=== PATIENT | male | born 1985 | race Hispanic/Latino ===

== ENCOUNTER 2018-05-04 06:23 | Inpatient (IN) | payer OTHER, SELFPAY ==
[2018-05-04 07:42] LABS: #Eosinphils 0.2 thou/uL (0.0-0.7); #Lymphocytes 1.8 thou/uL (1.20-3.40); #Monocytes 1.7 thou/uL (0.11-0.59); #Neutrophils 13.5 thou/uL (1.40-6.50); %Basophils 0.2 % (0.0-1.0); %Eosinophils 0.9 % (0.0-10.0); %Lymphocytes 10.4 % (21.0-51.0); %Monocytes 9.7 % (0.0-10.0); %Neutrophils 78.8 % (42.0-75.0); Hemoglobin 13.8 g/dL (14.0-18.0); Mean Corpuscular HGB CONC 31.7 g/dL (32.0-36.0); Mean Corpuscular Hemoglobin 31.9 pg (27.0-31.0); Mean Platelet Volume 8.9 fL (7.4-10.4); Platelet Count 189 thou/uL (130-400); RBC Distribution Width 16.1 % (11.5-14.5); Red Blood Cell (RBC) Count 4.34 mill/uL (4.70-6.10); White Blood Cell (WBC) Count 17.1 thou/uL (4.8-10.8)
[2018-05-04 08:00] LABS: ALT (SGPT) 45 U/L (8-55); AST (SGOT) 37 U/L (5-34); Alkaline Phosphatase 132 U/L (40-150); BUN (Urea Nitrogen) 19 mg/dL (8.9-20.6); Bilirubin, Total 7.2 mg/dL (0.2-1.2); CK (CPK) 76 U/L (30-200); Calc. Creatinine Clearance 0 mL/min (70-130); Calcium 8.4 mg/dL (7.8-10.44); Carbon Dioxide 22 mmol/L (22-29); Chloride 99 mmol/L (98-107); Estimated GFR-MDRD 56; Globulin 3.3 g/dL (2.4-3.5); Glucose 179 mg/dL (70-105); Lipase 174 U/L (8-78); Potassium 3.8 mmol/L (3.5-5.1); Protein, Total 6.3 g/dL (6.0-8.3); Sodium 131 mmol/L (136-145)
[2018-05-04] MEDS ORDERED: Ketorolac Tromethamine 30 MG/ML VIAL ONE (09:09)
[2018-05-04] MEDS ORDERED: Iopamidol 370 76% 50 ML VIAL FS ONE (09:32)
[2018-05-04 09:38] LABS: INR-International Normal Ratio 1.2; PTT 31.6 SEC (22.9-36.1); Prothrombin Time 15.3 SEC (12.0-14.7)
--- NOTE | 2018-05-04 09:42 | CT ---
ABDOMEN CT WITH CONTRAST PELVIC CT WITH CONTRAST: HISTORY: Postoperative pain. Bloating. COMPARISON: None. FINDINGS: ABDOMEN CT: Small bilateral effusions with adjacent consolidation likely representing atelectasis. Heart size is normal. No significant pericardial fluid. The visualized aorta has a normal caliber. Portal vein is patent. Unremarkable gallbladder. Liver, spleen, pancreas, and adrenal glands have appropriate enhancement. Symmetric enhancement of the kidneys. Bilaterally, no obstructive uropathy. No gastrohepatic, retrocrural, or periportal lymphadenopathy. There is perihepatic, perisplenic fluid with attenuation coefficient of 25 Hounsfield units suggestin g complex and possibly slightly hemorrhagic fluid. There is fluid and air attenuation near the splen ic hilum. There is some mild heterogeneity of the superior aspect of the spleen with a possible defe ct. Correlate for possible splenic infarction. Along the periphery of the aforementioned mixed flui d and air attenuation is a linear hyperdensity which appears to be contiguous with a vessel in the sp lenic hilum. The possibility of active extravasation is suggested. This active extravasation may be the source for the aforementioned complex/hemorrhagic fluid in the abdomen and pelvis. Limited evaluation of the alimentary canal. No evidence of bowel obstruction. The ileocecal junctio n is normal. Normal-caliber appendix. Scattered fecal material in the nondistended, nondilated colo n. Occasional diverticulum. PELVIC CT: Complex fluid in the pelvis. No mass, lymphadenopathy, or free air. Unremarkable urinary bladder. No lytic or blastic lesions in the osseous structures. IMPRESSION: 1. Complex fluid in the abdomen. There is fluid and air attenuation near the splenic hilum which ma y represent a developing clot. The possibility of a retained sponge is less likely given the lack of a radiopaque density associated with this collection. However, a confirmation of a correct sponge c ount should be performed. If there is concern for a retained sponge, consider radiograph to exclude possible retained sponge. 2. Possible active extravasation from a bleed associated with the vessel in the splenic hilum. This bleed may be the etiology for the complex fluid noted in the abdomen and pelvis. 3. Heterogeneous attenuation of the spleen superiorly. The possibility of splenic infarction cannot be excluded. 4. Bilateral effusions with adjacent atelectasis. Results of the study were discussed with Dr. Corado 05/04/2018 at 8:56 a.m. CODE CR POS: [facility]
[2018-05-04 09:48] LABS: Bilirubin Large (Negative); Blood, Urine Negative (Negative); Clarity CLEAR (Clear); Glucose, Urine (Dipstick) Negative (Negative); Leukocyte Small (Negative); Protein, Urine (Dipstick) Trace mg/dL (Neg-Trace)
[2018-05-04 09:51] LABS: Bacteria/HPF None Seen HPF (None Seen)
[2018-05-04 10:08] LABS: Nitrite Unable to Interpret (Negative); Pathc Cast-AUWi Flag 37.21 (0-2.49)
[2018-05-04 10:09] LABS: Specific Gravity, Urine 1.059 (1.002-1.036)
[2018-05-04] MEDS ORDERED: ISOVUE-370 76%-LOCM 1 ML ONE (10:09)
[2018-05-04 10:11] LABS: Crystals/HPF 1+ CA OXALATE HPF (Negative); RBC/HPF None Seen HPF (0-3); WBC/HPF 0-3 HPF (0-3)
[2018-05-04 10:12] LABS: Other Casts/LPF 4-6 FINELY GRAN LPF (0-3 Hyaline)
[2018-05-04 10:13] LABS: Squamous Epithelial 0-3 HPF (0-3)
[2018-05-04 10:14] LABS: Transitional Epithelial 0-3 HPF (0-3)
[2018-05-04] MEDS ORDERED: Lidocaine 1% (PF) 30 ML VIAL ONE (10:44)
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
[2018-05-04] MEDS ORDERED: Fentanyl 100 MCG/2 ML VIAL ONE (11:18)
[2018-05-04] MEDS ORDERED: Midazolam HCl 2 mg/2 ml Vial ONE (11:18)
[2018-05-04 12:25] LABS: Anion Gap 14 mmol/L (10-20)
[2018-05-04] MEDS ORDERED: Sodium Bicarbonate 150 MEQ in Dextrose 5% in Water 1,000 ML IV SCH (13:37)
[2018-05-04] MEDS ORDERED: Dextrose 5% in Water 1,000 ML IV PRN (13:37)
[2018-05-04] MEDS ORDERED: Ondansetron ODT 4 MG TAB PO PRN (13:37)
[2018-05-04] MEDS ORDERED: Ondansetron PF 4 MG/2 ML Vial IVP PRN (13:37)
[2018-05-04] MEDS ORDERED: Dextrose 50% Abboject 50 ML SYRINGE SLOW IVP PRN (13:37)
[2018-05-04] MEDS ORDERED: Morphine 2 MG/ML SYRINGE SLOW IVP PRN (13:49)
[2018-05-04] MEDS ORDERED: traMADol HCl 50 MG TAB PO PRN (14:02)
[2018-05-04 14:05] VITALS: BMI 34.8
[2018-05-04 14:10] LABS: Hemoglobin 12.7 g/dL (14.0-18.0)
[2018-05-04] MEDS: Sodium Chloride 0.9% 1,000 ML IV SCH ×2 (14:19→23:58)
[2018-05-04] MEDS: Acetaminophen 1,000 MG in Premix Bag 1 BAG IVPB SCH ×2 (14:21→21:21)
[2018-05-04] MEDS: Oxazepam 10 MG CAP PO SCH ×2 (14:22→22:53)
[2018-05-04 14:57] LABS: HBCM Index 0.52 S/CO (0-0.79); HBSAg Index 0.32 S/CO (0-0.99); Hep A IgM AB Non-Reactive (NonReactive); Hep A IgM S/CO 0.39 S/CO (0-0.79); Hep B Surf Ag Non-Reactive S/CO (NonReactive); Hep C IgG Ab Non-Reactive (NonReactive); Hep C Index 0.08 S/CO (0-0.79); Hepatitis B Core IgM Abs Non-Reactive (NonReactive)
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
[2018-05-04] MEDS: Ketorolac Tromethamine 30 MG/ML VIAL IVP SCH ×2 (16:20→21:20)
[2018-05-04 19:44] LABS: Hemoglobin 12.1 g/dL (14.0-18.0)
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
[2018-05-04] MEDS: Famotidine 20 MG TAB PO SCH (21:19)
[2018-05-05] MEDS: Acetaminophen 1,000 MG in Premix Bag 1 BAG IVPB SCH (01:55)
[2018-05-05 02:49] LABS: ALT (SGPT) 39 U/L (8-55); AST (SGOT) 39 U/L (5-34); Albumin 2.7 g/dL (3.5-5.0); Alkaline Phosphatase 109 U/L (40-150); Anion Gap 17 mmol/L (10-20); BUN (Urea Nitrogen) 26 mg/dL (8.9-20.6); Bilirubin, Direct 4.7 mg/dL (0.1-0.3); Bilirubin, Total 6.3 mg/dL (0.2-1.2); Calc. Creatinine Clearance 71 mL/min (70-130); Calcium 7.5 mg/dL (7.8-10.44); Carbon Dioxide 20 mmol/L (22-29); Chloride 97 mmol/L (98-107); Estimated GFR-MDRD 41; Glucose 114 mg/dL (70-105); Potassium 3.8 mmol/L (3.5-5.1); Protein, Total 5.8 g/dL (6.0-8.3); Sodium 130 mmol/L (136-145)
[2018-05-05 03:10] LABS: Band 4 % (5-11); Hemoglobin 11.7 g/dL (14.0-18.0); Hypochromia SLIGHT = 6-15 cells (100X) (0-5/hpf); Lymphocytes 4 % (21-51); MDiff Complete? YES; Mean Corpuscular HGB CONC 33.4 g/dL (32.0-36.0); Mean Corpuscular Hemoglobin 32.6 pg (27.0-31.0); Mean Corpuscular Volume 97.7 fL (78.0-98.0); Mean Platelet Volume 8.9 fL (7.4-10.4); Monocytes 10 % (0-10); Neutrophil 82 % (42-75); PLT Morphology Comment Appears Adequate; Platelet Count 207 thou/uL (130-400); RBC Distribution Width 15.9 % (11.5-14.5); Red Blood Cell (RBC) Count 3.59 mill/uL (4.70-6.10); White Blood Cell (WBC) Count 20.8 thou/uL (4.8-10.8)
[2018-05-05] MEDS: Ketorolac Tromethamine 30 MG/ML VIAL IVP SCH (04:02)
[2018-05-05] MEDS: Oxazepam 10 MG CAP PO SCH ×3 (05:53→21:18)
[2018-05-05 08:26] LABS: Hemoglobin 11.4 g/dL (14.0-18.0)
[2018-05-05] MEDS: Famotidine 20 MG TAB PO SCH ×2 (10:46→20:05)
[2018-05-05] MEDS: Sodium Chloride 0.9% 1,000 ML IV SCH (10:46)
[2018-05-05] MEDS: Folic Acid 1 MG TAB PO SCH (10:46)
[2018-05-05] MEDS: traMADol HCl 50 MG TAB PO PRN (12:41)
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
[2018-05-05] MEDS: Sodium Bicarbonate 150 MEQ in Dextrose 5% in Water 1,000 ML IV SCH (17:35)
--- NOTE | 2018-05-05 17:58 | ULT ---
VENOUS DUPLEX SONOGRAM BILATERAL LOWER EXTREMITY: Date: 05/05/18 HISTORY: Bilateral leg pain and edema. FINDINGS: Each common femoral vein and greater saphenous junction were evaluated along with each femoral and de ep femoral, popliteal, and posterior tibial vein. There is good color and spectral Doppler flow, comp ression, and augmentation. IMPRESSION: No sonographic evidence of deep venous thrombosis within either lower extremity. POS: ANDI
--- NOTE | 2018-05-05 18:33 | ULT ---
HEPATIC ULTRASOUND: HISTORY: Right-sided pleural effusion. Splenomegaly. Ascites. Evaluate for vascular thrombosis. TECHNIQUE: Multiple longitudinal and transverse images of the liver are obtained using a Multi-Hertz curvilinear transducer. Real-time, color-flow, and spectral wave-form Doppler analysis demonstrates a nodular a ppearing, enlarged liver. FINDINGS: Normal hepatopetal flow is seen in the portal system. The inferior vena cava is patent. The abdomin al aorta is unremarkable. The hepatic veins are patent. A moderate amount of ascites is seen. The spleen is patent. Flow is seen in the splenic artery. The splenic vein is difficult to assess d ue to patient's body habitus. The gallbladder is unremarkable. The common bile duct is of normal size. Incidentally noted right-sided pleural effusion is also seen. IMPRESSION: No evidence of significant hepatic venous or portal venous thrombosis. POS: [facility]
[2018-05-05] MEDS ORDERED: Furosemide 40 MG/4 ML VIAL SLOW IVP SCH (19:15)
[2018-05-06] MEDS: Sodium Bicarbonate 150 MEQ in Dextrose 5% in Water 1,000 ML IV SCH (02:09)
[2018-05-06] MEDS: traMADol HCl 50 MG TAB PO PRN (04:44)
[2018-05-06] MEDS: Oxazepam 10 MG CAP PO SCH ×3 (05:31→22:08)
[2018-05-06 05:49] LABS: #Eosinphils 0.1 thou/uL (0.0-0.7); #Lymphocytes 1.5 thou/uL (1.20-3.40); #Monocytes 2.2 thou/uL (0.11-0.59); #Neutrophils 14.1 thou/uL (1.40-6.50); %Basophils 0.3 % (0.0-1.0); %Eosinophils 0.7 % (0.0-10.0); %Lymphocytes 8.2 % (21.0-51.0); %Monocytes 12.5 % (0.0-10.0); %Neutrophils 78.4 % (42.0-75.0); Hemoglobin 10.3 g/dL (14.0-18.0); Mean Corpuscular HGB CONC 31.5 g/dL (32.0-36.0); Mean Corpuscular Hemoglobin 30.8 pg (27.0-31.0); Mean Corpuscular Volume 97.6 fL (78.0-98.0); Mean Platelet Volume 8.7 fL (7.4-10.4); Platelet Count 225 thou/uL (130-400); RBC Distribution Width 15.9 % (11.5-14.5); Red Blood Cell (RBC) Count 3.34 mill/uL (4.70-6.10); White Blood Cell (WBC) Count 17.9 thou/uL (4.8-10.8)
[2018-05-06 05:55] LABS: Anion Gap 13 mmol/L (10-20); BUN (Urea Nitrogen) 25 mg/dL (8.9-20.6); Calc. Creatinine Clearance 135 mL/min (70-130); Calcium 7.6 mg/dL (7.8-10.44); Carbon Dioxide 26 mmol/L (22-29); Chloride 94 mmol/L (98-107); Estimated GFR-MDRD 85; Glucose 136 mg/dL (70-105); Magnesium 1.8 mg/dL (1.6-2.6); Phosphorus 2.7 mg/dL (2.3-4.7); Potassium 3.2 mmol/L (3.5-5.1); Sodium 130 mmol/L (136-145)
[2018-05-06] MEDS: Famotidine 20 MG TAB PO SCH ×2 (08:36→22:08)
[2018-05-06] MEDS: Folic Acid 1 MG TAB PO SCH (08:36)
[2018-05-06] MEDS ORDERED: Potassium Chloride 40 MEQ in Sodium Chloride 0.9% 250 ML 250 ML IVPB SCH (09:00)
[2018-05-06 09:27] LABS: ALT (SGPT) 34 U/L (8-55); AST (SGOT) 45 U/L (5-34); Albumin 2.9 g/dL (3.5-5.0); Alkaline Phosphatase 119 U/L (40-150); Bilirubin, Direct 5.1 mg/dL (0.1-0.3); Protein, Total 6.2 g/dL (6.0-8.3)
[2018-05-06] MEDS ORDERED: Furosemide 20 MG TAB PO SCH (11:15)
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
[2018-05-07] MEDS: Oxazepam 10 MG CAP PO SCH ×3 (05:35→22:43)
[2018-05-07 06:40] LABS: Anion Gap 17 mmol/L (10-20); BUN (Urea Nitrogen) 19 mg/dL (8.9-20.6); Calc. Creatinine Clearance 161 mL/min (70-130); Calcium 8.1 mg/dL (7.8-10.44); Carbon Dioxide 26 mmol/L (22-29); Chloride 93 mmol/L (98-107); Estimated GFR-MDRD Greater than 90; Glucose 113 mg/dL (70-105); Magnesium 2.1 mg/dL (1.6-2.6); Phosphorus 2.6 mg/dL (2.3-4.7); Potassium 3.6 mmol/L (3.5-5.1); Sodium 132 mmol/L (136-145)
[2018-05-07 06:46] LABS: ALT (SGPT) 41 U/L (8-55); AST (SGOT) 62 U/L (5-34); Albumin 3.1 g/dL (3.5-5.0); Alkaline Phosphatase 160 U/L (40-150); Bilirubin, Direct 6.2 mg/dL (0.1-0.3); Bilirubin, Total 8.8 mg/dL (0.2-1.2)
[2018-05-07 06:50] LABS: Band 9 % (5-11); Hemoglobin 11.3 g/dL (14.0-18.0); Hypochromia SLIGHT = 6-15 cells (100X) (0-5/hpf); Lymphocytes 4 % (21-51); MDiff Complete? YES; Mean Corpuscular HGB CONC 31.8 g/dL (32.0-36.0); Mean Corpuscular Hemoglobin 31.5 pg (27.0-31.0); Mean Corpuscular Volume 98.9 fL (78.0-98.0); Mean Platelet Volume 8.5 fL (7.4-10.4); Monocytes 12 % (0-10); Neutrophil 75 % (42-75); PLT Morphology Comment Appears Adequate; Platelet Count 266 thou/uL (130-400); Polychromasia SLIGHT = 2-3 cells (100X) (0-2/hpf); RBC Distribution Width 16.4 % (11.5-14.5); Red Blood Cell (RBC) Count 3.59 mill/uL (4.70-6.10); White Blood Cell (WBC) Count 18.3 thou/uL (4.8-10.8)
[2018-05-07] MEDS: Famotidine 20 MG TAB PO SCH ×2 (09:08→20:31)
[2018-05-07] MEDS: Folic Acid 1 MG TAB PO SCH (09:09)
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
[2018-05-07] MEDS: Furosemide 20 MG/2 ML VIAL SLOW IVP SCH ×2 (16:07→23:36)
[2018-05-07] MEDS: traMADol HCl 50 MG TAB PO PRN (18:16)
[2018-05-08] MEDS: Oxazepam 10 MG CAP PO SCH ×3 (05:25→21:32)
[2018-05-08 06:00] LABS: #Basophils 0.1 thou/uL (0.0-0.2); #Eosinphils 0.3 thou/uL (0.0-0.7); #Lymphocytes 1.7 thou/uL (1.20-3.40); #Monocytes 2.2 thou/uL (0.11-0.59); #Neutrophils 11.9 thou/uL (1.40-6.50); %Basophils 0.5 % (0.0-1.0); %Eosinophils 1.8 % (0.0-10.0); %Lymphocytes 10.4 % (21.0-51.0); %Monocytes 13.5 % (0.0-10.0); %Neutrophils 73.9 % (42.0-75.0); Hemoglobin 9.8 g/dL (14.0-18.0); Mean Corpuscular HGB CONC 31.6 g/dL (32.0-36.0); Mean Corpuscular Hemoglobin 30.9 pg (27.0-31.0); Mean Corpuscular Volume 97.8 fL (78.0-98.0); Mean Platelet Volume 7.8 fL (7.4-10.4); Platelet Count 261 thou/uL (130-400); RBC Distribution Width 15.9 % (11.5-14.5); Red Blood Cell (RBC) Count 3.18 mill/uL (4.70-6.10); White Blood Cell (WBC) Count 16.1 thou/uL (4.8-10.8)
[2018-05-08 06:21] LABS: Anion Gap 14 mmol/L (10-20); BUN (Urea Nitrogen) 15 mg/dL (8.9-20.6); Calc. Creatinine Clearance 175 mL/min (70-130); Calcium 8.2 mg/dL (7.8-10.44); Carbon Dioxide 29 mmol/L (22-29); Chloride 94 mmol/L (98-107); Estimated GFR-MDRD Greater than 90; Glucose 108 mg/dL (70-105); Magnesium 2.3 mg/dL (1.6-2.6); Phosphorus 2.7 mg/dL (2.3-4.7); Sodium 133 mmol/L (136-145)
[2018-05-08] MEDS: Folic Acid 1 MG TAB PO SCH (08:25)
[2018-05-08] MEDS: Famotidine 20 MG TAB PO SCH ×2 (08:25→21:32)
[2018-05-08] MEDS: Enoxaparin Sodium 40 MG/0.4 ML SYRINGE SC SCH (08:25)
[2018-05-08] MEDS: Furosemide 20 MG/2 ML VIAL SLOW IVP SCH ×3 (08:25→23:33)
[2018-05-08 11:24] LABS: Albumin 3.1 g/dL (3.5-5.0); Bilirubin, Total 9.2 mg/dL (0.2-1.2); Potassium 3.8 mmol/L (3.5-5.1); Protein, Total 7.1 g/dL (6.0-8.3)
[2018-05-08 11:25] LABS: ALT (SGPT) 42 U/L (8-55); AST (SGOT) 73 U/L (5-34); Alkaline Phosphatase 173 U/L (40-150)
[2018-05-09] MEDS: Oxazepam 10 MG CAP PO SCH ×3 (05:09→21:31)
[2018-05-09 06:16] LABS: #Basophils 0.1 thou/uL (0.0-0.2); #Eosinphils 0.3 thou/uL (0.0-0.7); #Lymphocytes 1.5 thou/uL (1.20-3.40); #Neutrophils 11.9 thou/uL (1.40-6.50); %Basophils 0.5 % (0.0-1.0); %Eosinophils 2.1 % (0.0-10.0); %Lymphocytes 9.3 % (21.0-51.0); %Monocytes 12.5 % (0.0-10.0); %Neutrophils 75.7 % (42.0-75.0); Hemoglobin 9.7 g/dL (14.0-18.0); Mean Corpuscular HGB CONC 31.2 g/dL (32.0-36.0); Mean Corpuscular Hemoglobin 31.1 pg (27.0-31.0); Mean Corpuscular Volume 99.8 fL (78.0-98.0); Mean Platelet Volume 8.1 fL (7.4-10.4); Platelet Count 279 thou/uL (130-400); RBC Distribution Width 15.8 % (11.5-14.5); Red Blood Cell (RBC) Count 3.12 mill/uL (4.70-6.10); White Blood Cell (WBC) Count 15.8 thou/uL (4.8-10.8)
[2018-05-09 06:56] LABS: Anion Gap 13 mmol/L (10-20); BUN (Urea Nitrogen) 9 mg/dL (8.9-20.6); Calc. Creatinine Clearance 190 mL/min (70-130); Calcium 8.4 mg/dL (7.8-10.44); Carbon Dioxide 32 mmol/L (22-29); Chloride 93 mmol/L (98-107); Estimated GFR-MDRD Greater than 90; Glucose 93 mg/dL (70-105); Magnesium 1.8 mg/dL (1.6-2.6); Phosphorus 2.5 mg/dL (2.3-4.7); Potassium 3.5 mmol/L (3.5-5.1); Sodium 134 mmol/L (136-145)
[2018-05-09 08:25] LABS: ALT (SGPT) 45 U/L (8-55); AST (SGOT) 87 U/L (5-34); Albumin 3.1 g/dL (3.5-5.0); Alkaline Phosphatase 216 U/L (40-150); Bilirubin, Direct 6.6 mg/dL (0.1-0.3); Protein, Total 7.2 g/dL (6.0-8.3)
[2018-05-09] MEDS ORDERED: Potassium Chloride 40 MEQ in Premix Bag 1 BAG IVPB SCH (08:30)
[2018-05-09] MEDS ORDERED: Magnesium Sulfate 3 GM in Sodium Chloride 0.9% 100 ML IVPB SCH (08:30)
[2018-05-09] MEDS ORDERED: Potassium Chloride 40 MEQ, Magnesium Sulfate 3 GM in Sodium Chloride 0.9% 250 ML 250 ML IVPB SCH (09:00)
[2018-05-09] MEDS: Famotidine 20 MG TAB PO SCH ×2 (09:14→20:01)
[2018-05-09] MEDS: Furosemide 20 MG/2 ML VIAL SLOW IVP SCH ×3 (09:15→23:12)
[2018-05-09] MEDS: Enoxaparin Sodium 40 MG/0.4 ML SYRINGE SC SCH (09:15)
[2018-05-09] MEDS: Folic Acid 1 MG TAB PO SCH (09:15)
[2018-05-09] MEDS ORDERED: AcetaZOLAMIDE 250 MG TAB PO SCH (10:00)
[2018-05-09] MEDS: AcetaZOLAMIDE 250 MG TAB PO SCH ×2 (14:51→20:01)
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
[2018-05-10 06:02] LABS: ALT (SGPT) 40 U/L (8-55); AST (SGOT) 57 U/L (5-34); Alkaline Phosphatase 205 U/L (40-150); Anion Gap 14 mmol/L (10-20); BUN (Urea Nitrogen) 8 mg/dL (8.9-20.6); Bilirubin, Total 8.9 mg/dL (0.2-1.2); Calc. Creatinine Clearance 180 mL/min (70-130); Calcium 8.4 mg/dL (7.8-10.44); Carbon Dioxide 24 mmol/L (22-29); Chloride 101 mmol/L (98-107); Estimated GFR-MDRD Greater than 90; Globulin 3.8 g/dL (2.4-3.5); Glucose 111 mg/dL (70-105); Iron Binding Capacity, Total 189 mcg/dL (261-462); Protein, Total 6.8 g/dL (6.0-8.3); Sodium 136 mmol/L (136-145)
[2018-05-10 06:06] LABS: Potassium 2.9 mmol/L (3.5-5.1)
[2018-05-10] MEDS: Oxazepam 10 MG CAP PO SCH ×2 (06:30→20:40)
[2018-05-10] MEDS ORDERED: Potassium Chloride 20 MEQ TAB PO SCH ×2 (06:30→16:00)
[2018-05-10 06:42] LABS: Magnesium 1.9 mg/dL (1.6-2.6); Phosphorus 3.4 mg/dL (2.3-4.7)
[2018-05-10 06:51] LABS: Band 18 % (5-11); Eosinophils 1 % (0-10); Hemoglobin 10.1 g/dL (14.0-18.0); Lymphocytes 10 % (21-51); MDiff Complete? YES; Mean Corpuscular HGB CONC 31.2 g/dL (32.0-36.0); Mean Corpuscular Volume 99.6 fL (78.0-98.0); Mean Platelet Volume 7.7 fL (7.4-10.4); Monocytes 14 % (0-10); Neutrophil 57 % (42-75); Platelet Count 308 thou/uL (130-400); RBC Distribution Width 15.8 % (11.5-14.5); Red Blood Cell (RBC) Count 3.25 mill/uL (4.70-6.10); White Blood Cell (WBC) Count 16.4 thou/uL (4.8-10.8)
[2018-05-10] MEDS: Famotidine 20 MG TAB PO SCH ×2 (08:45→20:40)
[2018-05-10] MEDS: AcetaZOLAMIDE 250 MG TAB PO SCH (08:45)
[2018-05-10] MEDS: Folic Acid 1 MG TAB PO SCH (08:45)
[2018-05-10] MEDS: Furosemide 20 MG/2 ML VIAL SLOW IVP SCH ×3 (08:45→23:09)
[2018-05-10] MEDS: Enoxaparin Sodium 40 MG/0.4 ML SYRINGE SC SCH (08:45)
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
[2018-05-10 13:54] LABS: Bilirubin Small (Negative); Blood, Urine Negative (Negative); Clarity CLEAR (Clear); Glucose, Urine (Dipstick) Negative (Negative); Leukocyte Trace (Negative); Nitrite Negative (Negative); Protein, Urine (Dipstick) 30 mg/dL (Neg-Trace); Specific Gravity, Urine 1.013 (1.002-1.036); pH, Urine 8.5 (5.0-9.0)
[2018-05-10 13:57] LABS: Bacteria/HPF None Seen HPF (None Seen); Hyaline Casts/LPF 0-3 HYALINE CAST LPF (0-3 Hyaline); Pathc Cast-AUWi Flag 0.14 (0-2.49); Squamous Epithelial None Seen HPF (0-3)
--- NOTE | 2018-05-10 15:34 | RAD ---
PORTABLE CHEST: 05/10/18 HISTORY: Leukocytosis. Shortness of breath. No comparison chest films. Comparison is made to CT abdomen 05/04/18 which did have images through the lung bases. FINDINGS/IMPRESSION: Bilateral effusions and left basilar atelectasis was present on the prior CT. On today's exam, there is opacification of the left lung base indicating increased left effusion and left basilar atelectasis. Cardiomegaly. No significant vascular congestion. POS: H
[2018-05-11 06:07] LABS: #Basophils 0.1 thou/uL (0.0-0.2); #Eosinphils 0.5 thou/uL (0.0-0.7); #Lymphocytes 1.6 thou/uL (1.20-3.40); #Monocytes 2.3 thou/uL (0.11-0.59); #Neutrophils 11.1 thou/uL (1.40-6.50); %Basophils 0.6 % (0.0-1.0); %Eosinophils 3.1 % (0.0-10.0); %Monocytes 14.6 % (0.0-10.0); %Neutrophils 71.6 % (42.0-75.0); Hemoglobin 9.8 g/dL (14.0-18.0); Mean Corpuscular HGB CONC 31.8 g/dL (32.0-36.0); Mean Corpuscular Hemoglobin 31.6 pg (27.0-31.0); Mean Corpuscular Volume 99.4 fL (78.0-98.0); Mean Platelet Volume 7.1 fL (7.4-10.4); Platelet Count 303 thou/uL (130-400); RBC Distribution Width 15.7 % (11.5-14.5); Red Blood Cell (RBC) Count 3.09 mill/uL (4.70-6.10); White Blood Cell (WBC) Count 15.5 thou/uL (4.8-10.8)
[2018-05-11 06:30] LABS: ALT (SGPT) 37 U/L (8-55); AST (SGOT) 56 U/L (5-34); Albumin 2.8 g/dL (3.5-5.0); Alkaline Phosphatase 211 U/L (40-150); Anion Gap 13 mmol/L (10-20); BUN (Urea Nitrogen) 8 mg/dL (8.9-20.6); Bilirubin, Total 8.9 mg/dL (0.2-1.2); Calc. Creatinine Clearance 214 mL/min (70-130); Calcium 8.4 mg/dL (7.8-10.44); Carbon Dioxide 18 mmol/L (22-29); Chloride 107 mmol/L (98-107); Estimated GFR-MDRD Greater than 90; Globulin 4.1 g/dL (2.4-3.5); Glucose 101 mg/dL (70-105); Magnesium 1.5 mg/dL (1.6-2.6); Phosphorus 3.9 mg/dL (2.3-4.7); Protein, Total 6.9 g/dL (6.0-8.3); Sodium 135 mmol/L (136-145)
[2018-05-11] MEDS: Oxazepam 10 MG CAP PO SCH (08:19)
[2018-05-11] MEDS: Spironolactone 100 MG TAB PO SCH (08:19)
[2018-05-11] MEDS: Furosemide 20 MG/2 ML VIAL SLOW IVP SCH ×2 (08:20→15:31)
[2018-05-11] MEDS: Enoxaparin Sodium 40 MG/0.4 ML SYRINGE SC SCH (08:20)
[2018-05-11] MEDS: Famotidine 20 MG TAB PO SCH ×2 (08:20→20:05)
[2018-05-11] MEDS: Folic Acid 1 MG TAB PO SCH (08:20)
[2018-05-11] MEDS ORDERED: Potassium Chloride 40 MEQ in Premix Bag 1 BAG IVPB SCH (08:45)
[2018-05-11] MEDS ORDERED: Magnesium Sulfate 3 GM in Sodium Chloride 0.9% 100 ML IVPB SCH (08:45)
[2018-05-11] MEDS ORDERED: SODIUM CHLORIDE 0.9% IVPB SCH (09:30)
[2018-05-11] MEDS ORDERED: POTASSIUM CHLORIDE IVPB SCH (09:30)
[2018-05-11] MEDS ORDERED: MAGNESIUM SULFATE IVPB SCH (09:30)
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
[2018-05-11] MEDS ORDERED: Ciprofloxacin 500 MG TAB PO SCH (15:15)
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
[2018-05-11] MEDS: Ciprofloxacin 500 MG TAB PO SCH (20:05)
[2018-05-12] MEDS: Furosemide 20 MG/2 ML VIAL SLOW IVP SCH ×2 (01:44→08:57)
[2018-05-12] MEDS: Ciprofloxacin 500 MG TAB PO SCH (05:40)
[2018-05-12 06:30] LABS: ALT (SGPT) 35 U/L (8-55); AST (SGOT) 52 U/L (5-34); Albumin 2.8 g/dL (3.5-5.0); Alkaline Phosphatase 204 U/L (40-150); Anion Gap 12 mmol/L (10-20); BUN (Urea Nitrogen) 7 mg/dL (8.9-20.6); Bilirubin, Total 7.9 mg/dL (0.2-1.2); Calc. Creatinine Clearance 211 mL/min (70-130); Calcium 8.2 mg/dL (7.8-10.44); Carbon Dioxide 21 mmol/L (22-29); Chloride 106 mmol/L (98-107); Estimated GFR-MDRD Greater than 90; Globulin 4.4 g/dL (2.4-3.5); Glucose 112 mg/dL (70-105); Magnesium 1.7 mg/dL (1.6-2.6); Phosphorus 3.2 mg/dL (2.3-4.7); Protein, Total 7.2 g/dL (6.0-8.3); Sodium 136 mmol/L (136-145)
[2018-05-12] MEDS ORDERED: Potassium Chloride 20 MEQ TAB PO SCH (06:45)
[2018-05-12 07:06] LABS: Hemoglobin 9.8 g/dL (14.0-18.0); Mean Corpuscular HGB CONC 31.3 g/dL (32.0-36.0); Mean Corpuscular Hemoglobin 30.9 pg (27.0-31.0); Mean Corpuscular Volume 98.8 fL (78.0-98.0); Mean Platelet Volume 7.2 fL (7.4-10.4); Platelet Count 306 thou/uL (130-400); RBC Distribution Width 15.6 % (11.5-14.5); Red Blood Cell (RBC) Count 3.18 mill/uL (4.70-6.10); White Blood Cell (WBC) Count 13.1 thou/uL (4.8-10.8)
[2018-05-12] MEDS ORDERED: Clopidogrel Bisulfate 75 MG TAB ONE (07:16)
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
[2018-05-12 08:56] LABS: Band 18 % (5-11); Eosinophils 4 % (0-10); Lymphocytes 14 % (21-51); MDiff Complete? YES; Metamyelocyte 1 % (0-0); Monocytes 10 % (0-10); Neutrophil 53 % (42-75); Polychromasia SLIGHT = 2-3 cells (100X) (0-2/hpf)
[2018-05-12] MEDS: Famotidine 20 MG TAB PO SCH (08:57)
[2018-05-12] MEDS: Spironolactone 100 MG TAB PO SCH (08:57)
[2018-05-12] MEDS: Enoxaparin Sodium 40 MG/0.4 ML SYRINGE SC SCH (08:58)
[2018-05-12] MEDS: Folic Acid 1 MG TAB PO SCH (08:58)
[2018-05-12] MEDS ORDERED: Oxazepam 10 MG CAP PO SCH (09:00)
[2018-05-12 10:29] LABS: ANA Symphony (Qualitative) Negative (Negative); EliA Vaculitis New Method **** NEW METHOD ****; Mitochondrial Ab 0.8 U/mL (<4 Negative); dsDNA IgG Antibody 1.4 IU/mL (<10 Negative)
[2018-05-12 16:06] VITALS: BP 148/85; TEMP 99.7
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
[2018-05-13 12:16] LABS: Smooth Muscle Total ABS 23 Units (0-19)
[2018-05-15 13:18] LABS: Alpha-1-Antitrypsin 363 mg/dL (90-200)
== END 2018-05-12 16:45 | disposition home or self-care (01) | DRG 270 ==
LOC: ERS 06:23 → CCL 10:18 → IMCU/EMU 11:09 → SURG A 05-05 11:32
PROVIDERS: ADMIT Surgery; ATTEND Surgery
PROC: 04L43DZ Occlusion of Splenic Artery with Intraluminal Device, Percutaneous Approach (ICD-10-PCS; principal; 2018-05-04)
PROC: B4101ZZ Fluoroscopy of Abdominal Aorta using Low Osmolar Contrast (ICD-10-PCS; 2018-05-04)
PROC: B41F1ZZ Fluoroscopy of Right Lower Extremity Arteries using Low Osmolar Contrast (ICD-10-PCS; 2018-05-04)
PROC: B4131ZZ Fluoroscopy of Splenic Arteries using Low Osmolar Contrast (ICD-10-PCS; 2018-05-04)
DX: T80.818A Extravasation of other vesicant agent, initial encounter (principal); K83.1 Obstruction of bile duct; K56.7 Ileus, unspecified; N39.0 Urinary tract infection, site not specified; N17.9 Acute kidney failure, unspecified; D62 Acute posthemorrhagic anemia; R17 Unspecified jaundice; R79.89 Other specified abnormal findings of blood chemistry; K70.10 Alcoholic hepatitis without ascites; B95.2 Enterococcus as the cause of diseases classified elsewhere
CPT/HCPCS: 36415; 37244; 71045; 74177; 75625; 76705; 76942; 80048; 80053; 80074; 80076; 81003; 81015; 82103; 82104; 82550; 82728; 83516; 83550; 83690; 83735; 83880; 84100; 85007; 85025; 85027; 85610; 85730; 86038; 86225; 87040; 87070; 87077; 87086; 87186; 87205; 93970; 94640; 96361; 96374; 96375; 99152; 99153; C1760; C1769; J0131; J1644; J1650; J1885; J1940; J2001; J2250; J2270; J3010; J3475; J3480; J7050; J7070; J7620